=== PATIENT | female | born 1940 | race Two or more races ===

== ENCOUNTER 2019-11-29 14:48 | Outpatient (CLI) | payer OTHER ==
[~2019-11-29 14:48] MED LIST: DIURETICO; TOPROL XL25 MG; [UNRECOGNIZED DRUG - OTHER]
== END 2019-11-29 15:00 | disposition home or self-care (01) ==
LOC: NUCLEAR 14:48 → EDBD 14:48 → NUCLEAR 15:00
DX: I42.7 Cardiomyopathy due to drug and external agent (principal); C50.412 Malignant neoplasm of upper-outer quadrant of left female breast
CPT/HCPCS: 78472; 78496; A9560

== ENCOUNTER → 2021-07-21 | Emergency (ER) | payer OTHER ==
[~2021-07-21] MED LIST changes: +CLEOCIN HCL300 MG PO
== END | disposition left against medical advice (07) ==
LOC: ER 02:50
DX: Z53.20 Procedure and treatment not carried out because of patient's decision for unspecified reasons (principal)

== ENCOUNTER 2021-07-22 12:50 | Emergency (ER) | payer OTHER ==
[~2021-07-22] VITALS: Ht 165.1 cm; Wt 73.5 kg
[~2021-07-22 12:50] MED LIST changes: -CLEOCIN HCL300 MG PO
[2021-07-22] MEDS ORDERED: CLEOCIN HCL300 MG PO (20:30)
== END 2021-07-22 21:41 | disposition home or self-care (01) ==
LOC: ER 12:50
DX: L03.114 Cellulitis of left upper limb (principal)

== ENCOUNTER 2022-09-23 10:50 | Outpatient (CLI) | payer OTHER | END 2022-09-23 11:00 | disposition home or self-care (01) | LOC: PPH VACUNA 10:50 → EDBD 10:50 → PPH VACUNA 11:00 | PROVIDERS: ATTEND Emergency Medicine Pediatric Emergency Medicine | DX: Z23 Encounter for immunization (principal) ==

== ENCOUNTER → 2022-09-23 | Outpatient (CLI) | payer OTHER ==
[~2022-09-23] MED LIST changes: +CLEOCIN HCL300 MG PO
== END | disposition home or self-care (01) ==
LOC: EDBD 07:58 → NUCLEAR 07:58
PROVIDERS: ATTEND Internal Medicine
DX: C50.411 Malignant neoplasm of upper-outer quadrant of right female breast (principal); C50.412 Malignant neoplasm of upper-outer quadrant of left female breast; C77.3 Secondary and unspecified malignant neoplasm of axilla and upper limb lymph nodes; I97.2 Postmastectomy lymphedema syndrome; Z90.12 Acquired absence of left breast and nipple; L03.114 Cellulitis of left upper limb; I10 Essential (primary) hypertension
CPT/HCPCS: 78816; A9552

== ENCOUNTER 2024-04-27 09:03 | Outpatient (CLI) | payer OTHER | END 2024-04-27 10:00 | disposition home or self-care (01) | LOC: WOUND MED 09:03 → EDBD 09:03 → WOUND MED 10:00 | PROVIDERS: ATTEND Specialist | DX: L97.822 Non-pressure chronic ulcer of other part of left lower leg with fat layer exposed (principal) | CPT/HCPCS: 11042; A4927; A6219; A6223; A6251 ==

== ENCOUNTER 2024-05-01 07:46 | Outpatient (CLI) | payer OTHER | END 2024-05-01 08:00 | disposition home or self-care (01) | LOC: EDBD 07:46 → WOUND MED 07:46 | PROVIDERS: ATTEND Specialist | DX: L97.822 Non-pressure chronic ulcer of other part of left lower leg with fat layer exposed (principal) | CPT/HCPCS: 97602; A4927; A6219; A6223 ==

== ENCOUNTER 2024-06-01 09:14 | Outpatient (CLI) | payer OTHER | END 2024-06-01 10:00 | disposition home or self-care (01) | LOC: WOUND MED 09:14 | PROVIDERS: ATTEND Specialist | DX: L97.812 Non-pressure chronic ulcer of other part of right lower leg with fat layer exposed (principal) | CPT/HCPCS: 11042; A4927; A6219; A6223; A6251 ==

== ENCOUNTER 2024-06-08 09:35 | Outpatient (CLI) | payer OTHER | END 2024-06-08 10:30 | disposition home or self-care (01) | LOC: WOUND MED 09:35 | PROVIDERS: ATTEND Specialist | DX: L97.312 Non-pressure chronic ulcer of right ankle with fat layer exposed (principal) | CPT/HCPCS: 11042; A4927; A6219; A6223; A6251 ==

== ENCOUNTER 2024-06-12 09:30 | Outpatient (CLI) | payer OTHER | END 2024-06-12 12:00 | disposition home or self-care (01) | LOC: WOUND MED 09:30 | PROVIDERS: ATTEND Specialist | DX: L97.812 Non-pressure chronic ulcer of other part of right lower leg with fat layer exposed (principal) | CPT/HCPCS: 97602; A4927; A6219; A6223 ==

== ENCOUNTER 2024-06-15 08:40 | Outpatient (CLI) | payer OTHER ==
[2024-06-17] MEDS ORDERED: SYNTHROID75 MCG PO (13:53)
[2024-06-17] MEDS ORDERED: HYDROCORTISONE5 MG PO (13:53)
== END 2024-06-29 14:00 | disposition home or self-care (01) ==
LOC: WOUND MED 08:40 → WOUND CARE 09:30 → EDSTATUS 09:30 → WOUND MED 09:30
PROVIDERS: ATTEND Specialist
DX: L97.812 Non-pressure chronic ulcer of other part of right lower leg with fat layer exposed (principal)
CPT/HCPCS: 11042; A4927; A6021; A6219; A6223; A6251

== ENCOUNTER 2024-06-17 13:16 | Emergency (ER) | payer OTHER ==
[~2024-06-17] VITALS: Ht 165.1 cm; Wt 81.6 kg
[2024-06-17] MEDS ORDERED: HYDROCORTISONE5 MG PO (13:53)
[2024-06-17] MEDS ORDERED: SYNTHROID75 MCG PO (13:53)
[2024-06-17] MEDS ORDERED: LEVALBUTEROL HCL 1.25 MG/3 ML SOLUTION IH STA (15:00)
[2024-06-17] MEDS ORDERED: HYDROCODONE/CHLORPHEN P-STIREX 5 ML ML PO STA (15:01)
[2024-06-17] MEDS ORDERED: METHYLPREDNISOLONE SOD SUCC 125 MG VIAL IV STA (15:01)
[2024-06-17] MEDS ORDERED: METHYLPREDNISOLONE SOD SUCC 125 MG VIAL ONE (15:05)
[2024-06-17] MEDS ORDERED: LEVALBUTEROL HCL 0.63 MG/3 ML SOLUTION IH ONE (15:38)
[2024-06-17 15:48] LABS: HEMATOCRIT 39.8 % (36.0-45.00); HEMOGLOBIN 13.5 g/dL (12.0-15.00); MEAN CELL VOLUME 88.8 fL (80.00-100.00); MEAN CORPUSCULAR HEMOGLOBIN 30.1 pg (27.00-32.0); MEAN CORPUSCULAR HGB CONC 33.9 g/dl (32.0-36.0); PLATELET COUNT 257 K/uL (150-450); RED BLOOD COUNT 4.49 M/uL (4.00-6.00); RED CELL DISTRIBUTION WIDTH 17.2 % (11.5-14.5)
[2024-06-17 15:49] LABS: URINE APPEARANCE Clear; URINE BILIRRUBIN Negative (NEGATIVE); URINE BLOOD Negative; URINE COLOR Yellow; URINE GLUCOSE Negative (NEGATIVE); URINE KETONE Trace (NEGATIVE); URINE LEUKOCYTE Negative; URINE NITRATE Negative; URINE PROTEIN 30 (NEGATIVE)
[2024-06-17 15:50] LABS: URINE BACTERIA 166.3 uL (0.0-1933); URINE CAST 6.87 uL (0.0-1.40); URINE EPITHELIAL CELLS 20.7 uL (0.0-38.8); URINE RBC 11.4 uL (0.0-20.8); URINE WBC 5.8 uL (0.0-23.2)
[2024-06-17 16:04] LABS: CALCIUM 9.7 mg/dL (8.5-10.1); CREATININE SERUM 1.23 mg/dL (0.55-1.02); GFR 41.5; POTASSIUM 3.34 mEq/L (3.5-5.1)
[2024-06-17 16:12] LABS: URINE MUCUS MODERATE
== END 2024-06-17 17:04 | disposition home or self-care (01) ==
LOC: ER 13:18
PROVIDERS: General Practice
DX: R53.83 Other fatigue (principal); R05.9 Cough, unspecified; Z20.822 Contact with and (suspected) exposure to COVID-19; I10 Essential (primary) hypertension; E03.8 Other specified hypothyroidism
CPT/HCPCS: 36415; 71046; 94640; 96365; 99283; J3490

== ENCOUNTER → 2024-06-19 | Outpatient (CLI) | payer OTHER ==
[~2024-06-19] MED LIST changes: +HYDROCORTISONE5 MG PO; +SYNTHROID75 MCG PO
== END | disposition home or self-care (01) ==
LOC: WOUND MED 07:00
PROVIDERS: ATTEND Specialist
DX: L97.812 Non-pressure chronic ulcer of other part of right lower leg with fat layer exposed (principal)
CPT/HCPCS: 97602; A4927; A6219; A6223

== ENCOUNTER → 2024-06-22 | Outpatient (CLI) | payer OTHER | END | disposition home or self-care (01) | LOC: WOUND MED 08:31 | PROVIDERS: ATTEND Specialist | DX: L97.812 Non-pressure chronic ulcer of other part of right lower leg with fat layer exposed (principal) | CPT/HCPCS: 11042; A4927; A6219; A6223 ==

== ENCOUNTER → 2024-06-26 | Outpatient (CLI) | payer OTHER | END | disposition home or self-care (01) | LOC: WOUND MED 07:15 | PROVIDERS: ATTEND Specialist | DX: L97.812 Non-pressure chronic ulcer of other part of right lower leg with fat layer exposed (principal) | CPT/HCPCS: 97602; A4927; A6199; A6219; A6223 ==

== ENCOUNTER → 2024-06-29 | Outpatient (CLI) | payer OTHER | END | disposition home or self-care (01) | LOC: WOUND MED 08:34 | PROVIDERS: ATTEND Specialist | DX: L97.818 Non-pressure chronic ulcer of other part of right lower leg with other specified severity (principal) | CPT/HCPCS: A4927; A6223; G0463 ==